=== PATIENT | male | born 1955 | race Caucasian/White ===

== ENCOUNTER 2024-06-04 14:17 | Inpatient (IN) | payer BC ==
[2024-06-04] VITALS (17 sets, daily range): BP systolic 75–149; BP diastolic 35–111; PULSE 98–114; RESP 12–26; TEMP 36.8; O2SAT 92–98
[~2024-06-04] VITALS: Ht 177.8 cm; Wt 86.6 kg
[2024-06-04] MEDS ORDERED: SODIUM CHLORIDE 0.9% (SEPSIS BOLUS) IV ONE (14:30)
[2024-06-04] MEDS: LACTATED RINGERS 1,000 ML IV SCH (15:07)
[2024-06-04] MEDS: PIPERACILLIN/TAZO 3.375G/50ML 50 ML IV ONE (15:08)
[2024-06-04 15:31] LABS: HEMATOCRIT. 51.1 % (42.0-52.0); HEMOGLOBIN. 17.6 g/dL (14.0-18.0); MEAN CORPUSCULAR HGB CONC 34.5 g/dL (31.0-37.0); MEAN CORPUSCULAR VOLUME 95.5 fL (80.0-94.0); MEAN PLATELET VOLUME 8.2 fl (7.4-10.4); PLATELET 277 x1000/uL (130-400); RED BLOOD CELL COUNT 5.35 mill/uL (4.7-6.1); RED CELL DISTRIBUTION WIDTH 13.7 % (11.6-14.6)
[2024-06-04 15:36] LABS: CALCIUM 9.1 mg/dL (8.7-10.4); CARBON DIOXIDE 20 mEq/L (21-32); CHLORIDE 105 mEq/L (98-107); POTASSIUM 5.7 mEq/L (3.5-5.1); SODIUM 135 mEq/L (136-145)
[2024-06-04 15:39] LABS: DIFFERENTIAL COMMENT 1
[2024-06-04 15:41] LABS: CREATININE 1.2 mg/dL (0.6-1.3); GLUCOSE 152 mg/dL (70-105); UREA NITROGEN BLOOD 40 mg/dL (9-23)
[2024-06-04 15:42] LABS: ALANINE AMINOTRANSFERASE 44 IU/L (10-49); ALBUMIN 4.2 g/dL (3.2-4.8); ASPARTATE AMINOTRANSFERASE 116 IU/L (<34)
[2024-06-04 15:43] LABS: BILIRUBIN DIRECT 0.6 mg/dL (<=3.0); BILIRUBIN TOTAL 2.7 mg/dL (0.1-1.0); CREATINE KINASE > 1300 IU/L (46-171); PHOSPHORUS 4.4 mg/dL (2.5-4.9)
[2024-06-04 15:45] LABS: PROTEIN TOTAL 7.9 g/dL (6.0-8.3)
[2024-06-04 15:56] LABS: LACTIC ACID 2.5 mmol/L (0.4-2.0)
[2024-06-04 15:59] LABS: TROPONIN I HIGH SENSITIVITY 56 ng/L (3.0-53)
[2024-06-04] MEDS: VANCOMYCIN 1G PREMIX 200 ML IV ONE (16:25)
[2024-06-04 16:36] LABS: PLATELET ESTIMATE NORMAL
[2024-06-04] MEDS ORDERED: LIDOCAINE HCL/EPINEPHRINE 1%-EPI 1:100,000 20ML VIAL ONE (16:59)
[2024-06-04] MEDS ORDERED: THROMBIN (BOVINE) 5000 UNITS/VIAL TOP ONE (16:59)
[2024-06-04] MEDS ORDERED: GENTAMICIN SULF 40MG/ML 2ML VIAL ONE (16:59)
[2024-06-04] MEDS: TRANEXAMIC ACID 1,000MG/10ML IV ONE (17:00)
[2024-06-04] MEDS ORDERED: FENTANYL 2500MCG/250ML PMX 250 ML IV ONE (17:00)
[2024-06-04] MEDS: LEVETIRACETAM 500MG PREMIX 100 ML IV ONE (17:32)
[2024-06-04] MEDS: FENTANYL CITRATE/PF 50MCG/ML 2ML VIAL IV ONE (17:32)
[2024-06-04] MEDS: ETOMIDATE 2MG/ML 10ML VIAL IV ONE (17:38)
[2024-06-04] MEDS: PROPOFOL 10MG/ML 100ML 100 ML IV SCH (17:39)
[2024-06-04] MEDS: SUCCINYLCHOLINE CHLORIDE 200MG/10ML IV ONE (17:39)
[2024-06-04 17:51] LABS: PROTHROMBIN TIME 11.4 sec (9.6-11.0)
[2024-06-04] MEDS ORDERED: BACITRACIN 14GM TUBE TOP ONE (19:23)
[2024-06-04] MEDS ORDERED: NICARDIPINE 100 MG in SODIUM CHLORIDE 0.9% 60 ML IV PRN (19:30)
[2024-06-04] MEDS ORDERED: ROCURONIUM BROMIDE 10MG/ML VIAL 5ML IV ONE (19:36)
[2024-06-04] MEDS ORDERED: NALOXONE HCL 0.4MG/ML VIAL IV PRN (20:00)
[2024-06-04 20:50] LABS: BG BASE EXCESS -4.7 mmol/L (-2.0-3.0); BG CARBOXYHEMOGLOBIN 0.2 % (0.5-1.5); BG DEOXYHEMOGLOBIN 0.5 % (0.0-5.0); BG FRACTION INSPIRED OXYGEN 100; BG HCO3 ACT 22.6 mmol/L (21.0-28.0); BG METHEMOGLOBIN 0.2 % (0.5-1.5); BG OXYGEN SATURATION 99.5 % (94.0-98.0); BG OXYHEMOGLOBIN 99.1 % (94.0-98.0); BG PCO2 49.7 mmHg (35.0-48.0); BG PH 7.276 (7.350-7.450); BG PO2 253.8 mmHg (83.0-108.0); BG SAMPLE SITE ALINE; BG TOTAL HEMOGLOBIN 17.5 g/dL (13.5-17.5); BG VENT MODE VENT - AC
[2024-06-04] MEDS ORDERED: IPRATROPIUM/ALBUTEROL 0.5-3(2.5)MG/3ML NEB HHN PRN (21:00)
[2024-06-04] MEDS ORDERED: DEXTROSE 50% WATER 50ML SYRINGE IV PRN ×2 (21:00→21:30)
[2024-06-04] MEDS ORDERED: ONDANSETRON HCL 4MG/2ML INJ IV PRN (21:00)
[2024-06-04] MEDS: BLOOD SUGAR DIAGNOSTIC STRIP TEST SCH (21:00)
[2024-06-04] MEDS: NICARDIPINE 100 MG in SODIUM CHLORIDE 0.9% 60 ML IV PRN (21:10)
[2024-06-04] MEDS: DEXT 5%/LACTATED RINGERS 1,000 ML IV SCH (21:29)
[2024-06-04] MEDS: CEFAZOLIN 1000MG PREMIX 50 ML IV SCH (21:30)
[2024-06-04] MEDS ORDERED: IPRATROPIUM/ALBUTEROL 0.5-3(2.5)MG/3ML NEB NEB PRN (21:30)
[2024-06-04] MEDS: SODIUM CHLORIDE 0.9% 3ML FLUSH IVF SCH (22:00)
[2024-06-04] MEDS: PROPOFOL 10MG/ML 100ML 100 ML IV PRN (22:35)
[2024-06-04] MEDS: FENTANYL CITRATE/PF 1,000 MCG in SODIUM CHLORIDE 0.9% 80 ML IV NR (23:43)
[2024-06-04] MEDS: NOREPINEPHRINE 8MG/250ML PMX 250 ML IV PRN (23:43)
[2024-06-04 23:49] LABS: BG BASE EXCESS -6.8 mmol/L (-2.0-3.0); BG CARBOXYHEMOGLOBIN 0.6 % (0.5-1.5); BG DEOXYHEMOGLOBIN 3.1 % (0.0-5.0); BG FRACTION INSPIRED OXYGEN 100; BG HCO3 ACT 16.5 mmol/L (21.0-28.0); BG OXYGEN SATURATION 96.9 % (94.0-98.0); BG OXYHEMOGLOBIN 96.3 % (94.0-98.0); BG PCO2 28.2 mmHg (35.0-48.0); BG PH 7.384 (7.350-7.450); BG PO2 88.7 mmHg (83.0-108.0); BG SAMPLE SITE ALINE; BG TOTAL HEMOGLOBIN 16.1 g/dL (13.5-17.5); BG VENT MODE VENT - AC
[2024-06-05] VITALS (113 sets, daily range): BP systolic 60–165; BP diastolic 43–98; PULSE 84–137; RESP 13–47; TEMP 36.7–37.7; O2SAT 92–100
[2024-06-05] MEDS ORDERED: METOPROLOL TARTRATE 5MG/5ML VIAL IV NR (00:45)
[2024-06-05] MEDS ORDERED: AMIODARONE HCL 50MG/ML 3ML VIAL IV ONE (01:00)
[2024-06-05] MEDS ORDERED: LACTATED RINGERS 1,000 ML IV SCH (01:00)
[2024-06-05] MEDS: AMIODARONE 150MG/100ML D5W 100 ML IV NR (01:19)
[2024-06-05 01:28] LABS: BASOPHILS % 0.1 % (0.0-2.0); DIFFERENTIAL COMMENT 0; EOSINOPHILS % 0.5 % (0.0-5.0); HEMATOCRIT. 45.7 % (42.0-52.0); HEMOGLOBIN. 16.3 g/dL (14.0-18.0); LYMPHOCYTES % 7.5 % (20.0-50.0); MEAN CORPUSCULAR HEMOGLOBIN 33.8 pg (28.0-32.0); MEAN CORPUSCULAR HGB CONC 35.7 g/dL (31.0-37.0); MEAN CORPUSCULAR VOLUME 94.8 fL (80.0-94.0); MEAN PLATELET VOLUME 7.8 fl (7.4-10.4); MONOCYTES % 2.4 % (2.0-8.0); NEUTROPHILS % 89.5 % (40.0-76.0); PLATELET 229 x1000/uL (130-400); RED BLOOD CELL COUNT 4.82 mill/uL (4.7-6.1); RED CELL DISTRIBUTION WIDTH 13.5 % (11.6-14.6); WHITE BLOOD COUNT 9.4 x1000/uL (4.5-11.0)
[2024-06-05 01:41] LABS: CARBON DIOXIDE 21 mEq/L (21-32); CHLORIDE 108 mEq/L (98-107); POTASSIUM 3.9 mEq/L (3.5-5.1); SODIUM 139 mEq/L (136-145)
[2024-06-05 01:42] LABS: CALCIUM 8.1 mg/dL (8.7-10.4)
[2024-06-05 01:46] LABS: GLUCOSE 116 mg/dL (70-105)
[2024-06-05 01:47] LABS: CREATINE KINASE MB FRACTION 20.8 ng/mL (0.5-3.6); UREA NITROGEN BLOOD 54 mg/dL (9-23)
[2024-06-05 01:49] LABS: PHOSPHORUS 4.8 mg/dL (2.5-4.9)
[2024-06-05 01:59] LABS: CREATINE KINASE 5167 IU/L (46-171)
[2024-06-05 02:08] LABS: CREATININE 1.8 mg/dL (0.6-1.3); ETHANOL BLOOD < 10 mg/dL (<10)
[2024-06-05 02:10] LABS: TROPONIN I HIGH SENSITIVITY 59 ng/L (3.0-53)
[2024-06-05] MEDS: LACTATED RINGERS 1,000 ML IV SCH (02:17)
[2024-06-05] MEDS: AMIODARONE 360MG/200ML 200 ML IV SCH (02:19)
[2024-06-05] MEDS ORDERED: VANCOMYCIN 1G PREMIX 200 ML IV SCH (09:00)
[2024-06-05] MEDS: PANTOPRAZOLE SODIUM 40 MG/VIAL IV SCH (09:15)
[2024-06-05] MEDS: LEVETIRACETAM 500MG PREMIX 100 ML IV SCH (09:16)
[2024-06-05 09:36] LABS: BG BASE EXCESS -3.7 mmol/L (-2.0-3.0); BG CARBOXYHEMOGLOBIN 0.1 % (0.5-1.5); BG DEOXYHEMOGLOBIN 0.4 % (0.0-5.0); BG FRACTION INSPIRED OXYGEN 75; BG METHEMOGLOBIN 0.3 % (0.5-1.5); BG OXYGEN SATURATION 99.6 % (94.0-98.0); BG OXYHEMOGLOBIN 99.2 % (94.0-98.0); BG PCO2 32.7 mmHg (35.0-48.0); BG PH 7.404 (7.350-7.450); BG PO2 249.8 mmHg (83.0-108.0); BG SAMPLE SITE ALINE; BG VENT MODE VENT - AC
[2024-06-05] MEDS ORDERED: VANCOMYCIN 1GM/200ML PMX (BAXTER) IV SCH (10:00)
[2024-06-05] MEDS: VANCOMYCIN 1G PREMIX 200 ML IV SCH (10:32)
[2024-06-05] MEDS ORDERED: AMIODARONE HCL IV SCH (11:00)
[2024-06-05] MEDS ORDERED: AMIODARONE HCL 450 MG in DEXT 5% WATER 241 ML IV SCH (11:00)
[2024-06-05] MEDS ORDERED: WATER IV SCH (11:00)
[2024-06-05] MEDS ORDERED: DEXT 5% IV SCH (11:00)
[2024-06-05 12:26] LABS: HEMATOCRIT. 41.5 % (42.0-52.0); HEMOGLOBIN. 14.1 g/dL (14.0-18.0); MEAN CORPUSCULAR HEMOGLOBIN 32.6 pg (28.0-32.0); MEAN CORPUSCULAR HGB CONC 34.1 g/dL (31.0-37.0); MEAN CORPUSCULAR VOLUME 95.6 fL (80.0-94.0); RED BLOOD CELL COUNT 4.33 mill/uL (4.7-6.1); RED CELL DISTRIBUTION WIDTH 13.6 % (11.6-14.6); WHITE BLOOD COUNT 16.1 x1000/uL (4.5-11.0)
[2024-06-05 12:29] LABS: CHLORIDE 106 mEq/L (98-107); POTASSIUM 4.3 mEq/L (3.5-5.1); SODIUM 138 mEq/L (136-145)
[2024-06-05 12:30] LABS: CARBON DIOXIDE 22 mEq/L (21-32)
[2024-06-05 12:34] LABS: CREATINE KINASE MB FRACTION 12.3 ng/mL (0.5-3.6); TRIGLYCERIDE 204 mg/dL (0-150)
[2024-06-05 12:35] LABS: GLUCOSE 171 mg/dL (70-105); UREA NITROGEN BLOOD 58 mg/dL (9-23)
[2024-06-05 12:36] LABS: ALANINE AMINOTRANSFERASE 35 IU/L (10-49); ALBUMIN 3.2 g/dL (3.2-4.8); ASPARTATE AMINOTRANSFERASE 86 IU/L (<34); LDL CHOLESTEROL 62 mg/dL (5-100)
[2024-06-05 12:37] LABS: BILIRUBIN DIRECT 0.5 mg/dL (<=3.0); CHOLESTEROL 136 mg/dL (<200); HDL CHOLESTEROL 39 mg/dL (>55)
[2024-06-05 12:52] LABS: DIFFERENTIAL COMMENT 1
[2024-06-05 13:27] LABS: CREATININE 2.6 mg/dL (0.6-1.3); PROTEIN TOTAL 5.6 g/dL (6.0-8.3)
[2024-06-05] MEDS: CEFAZOLIN 1000MG PREMIX 50 ML IV SCH (14:03)
[2024-06-05] MEDS: AMIODARONE HCL 900 MG in DEXT 5% WATER 482 ML IV SCH (14:03)
[2024-06-05 15:59] LABS: CREATINE KINASE MB FRACTION 12.2 ng/mL (0.5-3.6)
[2024-06-05 17:36] LABS: CLARITY URINE CLOUDY (CLEAR); COLOR URINE DARK YELLOW (YELLOW); GLUCOSE URINE NEGATIVE (NEGATIVE); KETONES URINE NEGATIVE (NEGATIVE); LEUKOCYTE ESTERASE URINE NEGATIVE (NEGATIVE); NITRITE URINE NEGATIVE (NEGATIVE); OCCULT BLOOD URINE 1+ (NEGATIVE); PROTEIN URINE 1+ (NEGATIVE); SPECIFIC GRAVITY URINE 1.029 (1.005-1.030)
[2024-06-05] MEDS: SODIUM CHLORIDE 0.9% 500 ML IV ONE (17:38)
[2024-06-05 17:50] LABS: *AMPHETAMINES SCREEN URINE NEGATIVE (NEGATIVE); *BARBITURATES SCREEN URINE NEGATIVE (NEGATIVE); *BENZODIAZEPINES SCREEN URINE NEGATIVE (NEGATIVE); *COCAINE SCREEN URINE NEGATIVE (NEGATIVE); CANNABINOID URINE SCREEN NEGATIVE (NEGATIVE); ECSTASY MDMA SCREEN URINE NEGATIVE (NEGATIVE); METHADONE URINE SCREEN NEGATIVE (NEGATIVE); OPIATES URINE SCREEN NEGATIVE (NEGATIVE); PHENCYCLIDINE URINE SCREEN NEGATIVE (NEGATIVE)
[2024-06-05 18:28] LABS: BACTERIA URINE 2+; SQUAMOUS EPITHELIAL CELL URINE FEW /lpf (RARE/1+); WBC URINE 0-2 /hpf (0-2)
[2024-06-05 19:22] LABS: THYROID STIMULATING HORMONE 1.29 uIU/mL (0.55-4.78)
[2024-06-05] MEDS: IPRATROPIUM/ALBUTEROL 0.5-3(2.5)MG/3ML NEB HHN SCH (20:29)
[2024-06-05 21:24] LABS: MEAN PLATELET VOLUME 8.3 fl (7.4-10.4); PLATELET 182 x1000/uL (130-400)
[2024-06-05 21:25] LABS: PLATELET ESTIMATE NORMAL
[2024-06-05] MEDS: SODIUM CHLORIDE 0.9% 1,000 ML IV SCH (23:18)
[2024-06-05] MEDS: PROPOFOL 10MG/ML 100ML 100 ML IV PRN (23:42)
[2024-06-06] VITALS (104 sets, daily range): BP systolic 91–142; BP diastolic 54–102; PULSE 76–100; RESP 12–23; TEMP 36.1–37.2; O2SAT 96–100
[2024-06-06 04:56] LABS: HEMATOCRIT. 37.8 % (42.0-52.0); HEMOGLOBIN. 12.8 g/dL (14.0-18.0); MEAN CORPUSCULAR HEMOGLOBIN 32.5 pg (28.0-32.0); MEAN CORPUSCULAR HGB CONC 33.9 g/dL (31.0-37.0); MEAN CORPUSCULAR VOLUME 95.7 fL (80.0-94.0); MEAN PLATELET VOLUME 8.3 fl (7.4-10.4); PLATELET 157 x1000/uL (130-400); RED BLOOD CELL COUNT 3.94 mill/uL (4.7-6.1); RED CELL DISTRIBUTION WIDTH 13.7 % (11.6-14.6); WHITE BLOOD COUNT 11.9 x1000/uL (4.5-11.0)
[2024-06-06 05:06] LABS: CHLORIDE 108 mEq/L (98-107)
[2024-06-06 05:07] LABS: POTASSIUM 3.7 mEq/L (3.5-5.1); SODIUM 141 mEq/L (136-145)
[2024-06-06 05:08] LABS: CARBON DIOXIDE 23 mEq/L (21-32)
[2024-06-06 05:11] LABS: DIFFERENTIAL COMMENT 1
[2024-06-06 05:13] LABS: GLUCOSE 129 mg/dL (70-105); TRIGLYCERIDE 168 mg/dL (0-150); UREA NITROGEN BLOOD 52 mg/dL (9-23)
[2024-06-06 05:15] LABS: ALANINE AMINOTRANSFERASE 24 IU/L (10-49); ALBUMIN 3.1 g/dL (3.2-4.8); ASPARTATE AMINOTRANSFERASE 67 IU/L (<34); BILIRUBIN TOTAL 0.9 mg/dL (0.1-1.0); PROTEIN TOTAL 5.8 g/dL (6.0-8.3)
[2024-06-06] MEDS: FENTANYL CITRATE/PF 1,000 MCG in SODIUM CHLORIDE 0.9% 80 ML IV PRN (05:15)
[2024-06-06 05:26] LABS: CREATINE KINASE 1927 IU/L (46-171)
[2024-06-06 05:51] LABS: PLATELET ESTIMATE NORMAL
[2024-06-06] MEDS: AMIODARONE 200MG TABLET PO SCH (08:43)
[2024-06-06 09:56] LABS: BG CARBOXYHEMOGLOBIN 0.6 % (0.5-1.5); BG FRACTION INSPIRED OXYGEN 40; BG HCO3 ACT 22.1 mmol/L (21.0-28.0); BG METHEMOGLOBIN 0.3 % (0.5-1.5); BG OXYHEMOGLOBIN 96.1 % (94.0-98.0); BG PCO2 35.7 mmHg (35.0-48.0); BG PH 7.409 (7.350-7.450); BG PO2 87.2 mmHg (83.0-108.0); BG SAMPLE SITE RIGHT RADIAL; BG TOTAL HEMOGLOBIN 13.7 g/dL (13.5-17.5); BG VENT MODE VENT - AC
[2024-06-06] MEDS: VANCOMYCIN 1.25GM PMX (XELLIA) 250 ML IV SCH (12:08)
[2024-06-06] MEDS ORDERED: VANCOMYCIN 1G PREMIX 200 ML IV SCH (15:00)
[2024-06-06] MEDS: PROPOFOL 10MG/ML 100ML 100 ML IV PRN (23:25)
[2024-06-07] VITALS (107 sets, daily range): BP systolic 106–167; BP diastolic 60–121; PULSE 74–126; RESP 11–29; TEMP 36.4–37.2; O2SAT 92–100
[2024-06-07 04:57] LABS: HEMATOCRIT. 36.4 % (42.0-52.0); HEMOGLOBIN. 12.2 g/dL (14.0-18.0); MEAN CORPUSCULAR HEMOGLOBIN 32.5 pg (28.0-32.0); MEAN CORPUSCULAR HGB CONC 33.5 g/dL (31.0-37.0); MEAN PLATELET VOLUME 8.3 fl (7.4-10.4); PLATELET 143 x1000/uL (130-400); RED BLOOD CELL COUNT 3.75 mill/uL (4.7-6.1); RED CELL DISTRIBUTION WIDTH 13.7 % (11.6-14.6); WHITE BLOOD COUNT 8.6 x1000/uL (4.5-11.0)
[2024-06-07 05:08] LABS: DIFFERENTIAL COMMENT 1
[2024-06-07 05:18] LABS: CHLORIDE 111 mEq/L (98-107); POTASSIUM 3.9 mEq/L (3.5-5.1); SODIUM 143 mEq/L (136-145)
[2024-06-07 05:19] LABS: CALCIUM 8.5 mg/dL (8.7-10.4); CARBON DIOXIDE 23 mEq/L (21-32)
[2024-06-07 05:24] LABS: CREATININE 1.1 mg/dL (0.6-1.3); GLUCOSE 117 mg/dL (70-105); UREA NITROGEN BLOOD 30 mg/dL (9-23)
[2024-06-07 05:26] LABS: ALANINE AMINOTRANSFERASE 18 IU/L (10-49); ALBUMIN 3.2 g/dL (3.2-4.8); ASPARTATE AMINOTRANSFERASE 50 IU/L (<34); BILIRUBIN TOTAL 0.7 mg/dL (0.1-1.0)
[2024-06-07 05:27] LABS: PROTEIN TOTAL 5.7 g/dL (6.0-8.3)
[2024-06-07 05:38] LABS: CREATINE KINASE 1382 IU/L (46-171)
[2024-06-07 06:34] LABS: PLATELET ESTIMATE NORMAL
[2024-06-07] MEDS: FOLIC ACID/VITAMIN B COMP W-C TABLET PO SCH (08:50)
[2024-06-07] MEDS: MORPHINE SULFATE 4 MG/ML INJ (FOR IV/IM USE) IV PRN (10:09)
[2024-06-07 10:55] LABS: BG BASE EXCESS -2.3 mmol/L (-2.0-3.0); BG CARBOXYHEMOGLOBIN 0.3 % (0.5-1.5); BG DEOXYHEMOGLOBIN 0.7 % (0.0-5.0); BG FRACTION INSPIRED OXYGEN 40; BG METHEMOGLOBIN 0.3 % (0.5-1.5); BG OXYGEN SATURATION 99.3 % (94.0-98.0); BG OXYHEMOGLOBIN 98.7 % (94.0-98.0); BG PCO2 31.5 mmHg (35.0-48.0); BG PH 7.442 (7.350-7.450); BG SAMPLE SITE RIGHT RADIAL; BG TOTAL HEMOGLOBIN 11.9 g/dL (13.5-17.5); BG VENT MODE VENT - AC
[2024-06-07] MEDS: VANCOMYCIN 1.25GM PMX (XELLIA) 250 ML IV SCH (11:30)
[2024-06-08] VITALS (101 sets, daily range): BP systolic 108–149; BP diastolic 55–122; PULSE 86–119; RESP 16–30; TEMP 36.5–38.6; O2SAT 90–100
[2024-06-08] MEDS: ACETAMINOPHEN 650MG/20.3ML UDC GT PRN (03:15)
[2024-06-08 06:21] LABS: POTASSIUM 4.2 mEq/L (3.5-5.1)
[2024-06-08 06:23] LABS: CALCIUM 8.5 mg/dL (8.7-10.4)
[2024-06-08 06:27] LABS: CREATININE 1.2 mg/dL (0.6-1.3)
[2024-06-08 10:53] LABS: BG BASE EXCESS -4.4 mmol/L (-2.0-3.0); BG DEOXYHEMOGLOBIN 2.6 % (0.0-5.0); BG FRACTION INSPIRED OXYGEN 80; BG HCO3 ACT 18.9 mmol/L (21.0-28.0); BG METHEMOGLOBIN 0.3 % (0.5-1.5); BG OXYGEN SATURATION 97.4 % (94.0-98.0); BG OXYHEMOGLOBIN 96.1 % (94.0-98.0); BG PCO2 29.7 mmHg (35.0-48.0); BG PH 7.421 (7.350-7.450); BG PO2 92.2 mmHg (83.0-108.0); BG SAMPLE SITE RIGHT RADIAL; BG TOTAL HEMOGLOBIN 12.9 g/dL (13.5-17.5); BG TOTAL RESPIRATORY RATE 24 b/min; BG VENT MODE VENT - AC
[2024-06-08] MEDS: VANCOMYCIN 750MG/150ML (BAXTER) IV SCH (23:04)
[2024-06-09] VITALS (106 sets, daily range): BP systolic 110–170; BP diastolic 58–88; PULSE 92–128; RESP 20–35; TEMP 37.8–38.3; O2SAT 89–100
[2024-06-09 05:43] LABS: HEMATOCRIT. 36.2 % (42.0-52.0); HEMOGLOBIN. 11.9 g/dL (14.0-18.0); MEAN CORPUSCULAR HEMOGLOBIN 32.2 pg (28.0-32.0); MEAN CORPUSCULAR HGB CONC 32.8 g/dL (31.0-37.0); MEAN CORPUSCULAR VOLUME 98.1 fL (80.0-94.0); MEAN PLATELET VOLUME 8.5 fl (7.4-10.4); PLATELET 161 x1000/uL (130-400); RED BLOOD CELL COUNT 3.69 mill/uL (4.7-6.1); RED CELL DISTRIBUTION WIDTH 13.6 % (11.6-14.6); WHITE BLOOD COUNT 11.8 x1000/uL (4.5-11.0)
[2024-06-09 05:53] LABS: CALCIUM 9.4 mg/dL (8.7-10.4); CARBON DIOXIDE 21 mEq/L (21-32); CHLORIDE 115 mEq/L (98-107); SODIUM 146 mEq/L (136-145)
[2024-06-09 05:59] LABS: CREATININE 0.9 mg/dL (0.6-1.3); GLUCOSE 190 mg/dL (70-105); UREA NITROGEN BLOOD 23 mg/dL (9-23)
[2024-06-09 08:09] LABS: DIFFERENTIAL COMMENT 1
[2024-06-09] MEDS: AMLODIPINE 10MG TABLET GT SCH (10:21)
[2024-06-09 14:52] LABS: PLATELET ESTIMATE NORMAL
[2024-06-09] MEDS: HYDRALAZINE HCL 50MG TABLET PO SCH (16:24)
[2024-06-09] MEDS: CLONIDINE 0.1MG TABLET PO PRN (18:14)
[2024-06-09] MEDS ORDERED: NALOXONE HCL 0.4MG/ML VIAL IV PRN (22:00)
[2024-06-10] VITALS (97 sets, daily range): BP systolic 110–151; BP diastolic 54–75; PULSE 88–118; RESP 15–30; TEMP 99.8–101.7; O2SAT 88–100
[2024-06-10 09:50] LABS: BG BASE EXCESS -3.7 mmol/L (-2.0-3.0); BG CARBOXYHEMOGLOBIN 0.6 % (0.5-1.5); BG DEOXYHEMOGLOBIN 5.1 % (0.0-5.0); BG FRACTION INSPIRED OXYGEN 70; BG HCO3 ACT 19.6 mmol/L (21.0-28.0); BG METHEMOGLOBIN 0.3 % (0.5-1.5); BG OXYGEN SATURATION 94.9 % (94.0-98.0); BG PCO2 30.3 mmHg (35.0-48.0); BG PH 7.429 (7.350-7.450); BG PO2 70.9 mmHg (83.0-108.0); BG SAMPLE SITE RIGHT RADIAL; BG TOTAL HEMOGLOBIN 12.3 g/dL (13.5-17.5); BG VENT MODE VENT - AC
[2024-06-10 10:48] LABS: CHLORIDE 114 mEq/L (98-107); POTASSIUM 4.1 mEq/L (3.5-5.1); SODIUM 146 mEq/L (136-145)
[2024-06-10 10:49] LABS: CARBON DIOXIDE 22 mEq/L (21-32)
[2024-06-10 10:50] LABS: CALCIUM 9.5 mg/dL (8.7-10.4)
[2024-06-10 10:54] LABS: CREATININE 0.9 mg/dL (0.6-1.3); GLUCOSE 174 mg/dL (70-105); UREA NITROGEN BLOOD 28 mg/dL (9-23)
[2024-06-10] MEDS ORDERED: ACETAMINOPHEN 325MG TABLET GT PRN (11:15)
[2024-06-10] MEDS: ACETAMINOPHEN 650MG/20.3ML UDC GT PRN (12:34)
[2024-06-10] MEDS: MORPHINE SULFATE 4 MG/ML INJ (FOR IV/IM USE) IV PRN (12:35)
[2024-06-10] MEDS: PIPERACILLIN/TAZO 3.375G/50ML 50 ML IV SCH (12:35)
[2024-06-10 14:10] LABS: CLARITY URINE CLOUDY (CLEAR); COLOR URINE YELLOW (YELLOW); GLUCOSE URINE NEGATIVE (NEGATIVE); KETONES URINE NEGATIVE (NEGATIVE); LEUKOCYTE ESTERASE URINE 2+ (NEGATIVE); NITRITE URINE POSITIVE (NEGATIVE); OCCULT BLOOD URINE 2+ (NEGATIVE); PROTEIN URINE TRACE (NEGATIVE)
[2024-06-10 14:16] LABS: BACTERIA URINE 2+; SQUAMOUS EPITHELIAL CELL URINE NONE SEEN /lpf (RARE/1+); WBC URINE 25-50 /hpf (0-2); YEAST URINE NONE SEEN
[2024-06-10] MEDS: PROPOFOL 10MG/ML 100ML 100 ML IV PRN (14:22)
[2024-06-10] MEDS ORDERED: IPRATROPIUM/ALBUTEROL 0.5-3(2.5)MG/3ML NEB HHN PRN (15:15)
[2024-06-11] VITALS (68 sets, daily range): BP systolic 96–156; BP diastolic 54–87; PULSE 0–122; RESP 0–29; TEMP 101.2–102.3; O2SAT 0–97
[2024-06-11 09:00] LABS: POTASSIUM 4.3 mEq/L (3.5-5.1)
[2024-06-11 09:02] LABS: CALCIUM 8.9 mg/dL (8.7-10.4)
[2024-06-11 09:06] LABS: CREATININE 1.2 mg/dL (0.6-1.3)
[2024-06-11] MEDS ORDERED: LORAZEPAM 2MG/ML INJ IV PRN ×2 (13:00→13:45)
[2024-06-11] MEDS ORDERED: MORPHINE SULFATE 250 MG in DEXT 5% WATER 240 ML IV PRN ×2 (13:00→14:30)
[2024-06-11] MEDS ORDERED: MORPHINE (DRIP)100 MG in DEXT 5% WATER 100 ML IV PRN (13:15)
[2024-06-11] MEDS: MORPHINE SULFATE 2 MG/ML INJ (NOT FOR IM USE) IV SCH (13:50)
[2024-06-11] MEDS ORDERED: MORPHINE SULFATE 250 MG in DEXT 5% WATER 225 ML IV PRN (14:45)
== END 2024-06-11 15:13 | DRG 853 ==
LOC: ER 14:32 → EDBEDREQ 17:02 → EDBEDREQTM 19:14 → MICUNO 19:32
PROVIDERS: ADMIT Internal Medicine; ATTEND Internal Medicine
PROC: 00C Central Nervous System and Cranial Nerves, Extirpation (ICD-10-PCS; principal; 2024-06-04)
PROC: 00C60ZZ Extirpation of Matter from Cerebral Ventricle, Open Approach (ICD-10-PCS; 2024-06-04)
PROC: 4A103BD Monitoring of Intracranial Pressure, Percutaneous Approach (ICD-10-PCS; 2024-06-04)
PROC: 5A1955Z Respiratory Ventilation, Greater than 96 Consecutive Hours (ICD-10-PCS; 2024-06-04)
PROC: 0BH17EZ Insertion of Endotracheal Airway into Trachea, Via Natural or Artificial Opening (ICD-10-PCS; 2024-06-04)
PROC: 02HV33Z Insertion of Infusion Device into Superior Vena Cava, Percutaneous Approach (ICD-10-PCS; 2024-06-05)
PROC: B548ZZA Ultrasonography of Superior Vena Cava, Guidance (ICD-10-PCS; 2024-06-05)
DX: A41.2 Sepsis due to unspecified staphylococcus (principal); G93.41 Metabolic encephalopathy; I61.9 Nontraumatic intracerebral hemorrhage, unspecified; I21.A1 Myocardial infarction type 2; J96.01 Acute respiratory failure with hypoxia; G93.6 Cerebral edema; J69.0 Pneumonitis due to inhalation of food and vomit; R65.21 Severe sepsis with septic shock; I63.511 Cerebral infarction due to unspecified occlusion or stenosis of right middle cerebral artery; J18.9 Pneumonia, unspecified organism; N17.0 Acute kidney failure with tubular necrosis; I61.5 Nontraumatic intracerebral hemorrhage, intraventricular; M62.82 Rhabdomyolysis; E87.1 Hypo-osmolality and hyponatremia; I96 Gangrene, not elsewhere classified; L97.829 Non-pressure chronic ulcer of other part of left lower leg with unspecified severity; L97.819 Non-pressure chronic ulcer of other part of right lower leg with unspecified severity; I48.91 Unspecified atrial fibrillation; E87.5 Hyperkalemia; I10 Essential (primary) hypertension; K56.41 Fecal impaction; D63.8 Anemia in other chronic diseases classified elsewhere; D75.89 Other specified diseases of blood and blood-forming organs; E87.6 Hypokalemia; L89.899 Pressure ulcer of other site, unspecified stage; S00.81XA Abrasion of other part of head, initial encounter; S60.222A Contusion of left hand, initial encounter; X58.XXXA Exposure to other specified factors, initial encounter; Y93.89 Activity, other specified; Y92.89 Other specified places as the place of occurrence of the external cause; Y99.8 Other external cause status; Z79.899 Other long term (current) drug therapy; Z85.118 Personal history of other malignant neoplasm of bronchus and lung; Z85.820 Personal history of malignant melanoma of skin; Z85.828 Personal history of other malignant neoplasm of skin; Z87.891 Personal history of nicotine dependence; I25.2 Old myocardial infarction; Z66 Do not resuscitate; D53.9 Nutritional anemia, unspecified; E83.51 Hypocalcemia; Z51.5 Encounter for palliative care
CPT/HCPCS: 31500; 36415; 36600; 71045; 71250; 73120; 74176; 80048; 80053; 80061; 80076; 80202; 80305; 80320; 81003; 82375; 82550; 82553; 82805; 82962; 83036; 83605; 83735; 83880; 84100; 84145; 84443; 84478; 84484; 85025; 86850; 86900; 87070; 87077; 87186; 93005; 93306; 93970; 94002; 94003; 94070; 94640; 94664; 99291; A4606; A6261; C1758; J0282; J0690; J1580; J1953; J2004; J2270; J2470; J2543; J2704; J3010; J3370; J3490; J7030; J7050; J7060; J7120; A5200; C1713; G0480